=== PATIENT | male | born 1940 | race Hispanic/Latino ===

== ENCOUNTER 2018-09-14 14:14 | Inpatient (IN) | payer MEDICARE ==
--- NOTE | 2018-09-14 15:15 | ED PDOC ---
HPI: CCC, URI, Sore Throat Additional Complaint(s): Pt seen and examined at bedside with attending. Patient from [place], flight scheduled for Wednesday and family understands that will depend on his condition. 78M referred from [facility] for CXR showing "infiltrates". Pt reports has had 3 days of low grade fevers, fatigue, productive cough, and worsening shortness of breath. He denies any N/V/diarrhea, chest pain, lower extremity leg swelling. He arrived in [place] from [facility] 09/12 after a total 12hr flight (family vacation) but was having symptoms prior to the flight. He denies any calf pain or swelling. He denies diagnosis of COPD/DM/Heart failure in the past. PMH: A-fib, HTN, ?HF PSH: Brain Tumor (benign) SHx: Smoker ALL: NKDA <Jessica Calderón - Last Filed: 09/14/18 19:02> <Vince Sandhu III - Last Filed: 09/19/18 13:12> <Cynthia Logan - Last Filed: 09/20/18 05:14> Time Seen by Provider: 09/14/18 15:00 Chief Complaint (Nursing): Cough, Cold, Congestion Supervising Attending Note - Attestation: I have personally seen and examined this patient.: Yes I have fully participated in the care of the patient.: Yes I have reviewed all pertinent clinical information, including history, physical exam and plan: Yes - Notes: Notes:: seen and examined w resident agree w findings and plan <Vince Sandhu III - Last Filed: 09/19/18 13:12> Past Medical History Vital Signs: Last Vital Signs Temp 36.6 C 09/14/18 14:19 Pulse 93 H 09/14/18 14:19 Resp 22 09/14/18 14:19 BP 185/105 H 09/14/18 14:19 Pulse Ox 92 L 09/14/18 14:19 - Family History Family History: States: No Known Family Hx <Jessica Calderón - Last Filed: 09/14/18 19:02> Vital Signs: Last Vital Signs Temp 98.7 F 09/17/18 15:49 Pulse 61 09/17/18 16:14 Resp 18 09/17/18 15:49 BP 151/76 H 09/17/18 16:14 Pulse Ox 95 09/17/18 15:49 <Vince Sandhu III - Last Filed: 09/19/18 13:12> Vital Signs: Last Vital Signs Temp 98.7 F 09/17/18 15:49 Pulse 61 09/17/18 16:14 Resp 18 09/17/18 15:49 BP 151/76 H 09/17/18 16:14 Pulse Ox 95 09/17/18 15:49 <Cynthia Logan - Last Filed: 09/20/18 05:14> - Allergies Allergies/Adverse Reactions: Allergies Allergy/AdvReac Type Severity Reaction Status Date / Time No Known Allergies Allergy Verified 09/14/18 14:18 Curb-65 Severity Score - CURB-65 Severity Score Confusion: No Bun >19mg/dl (>7mmol/L): No Respiratory Rate greater than/equal to 30: No Systolic BP <90 or Diastolic BP less than/equal 60mmHg: No Age >64: Yes Curb-65 Score: 1 Percentage 30-day mortality: 2.7% <Jessica Calderón - Last Filed: 09/14/18 19:02> Review of Systems ROS Statement: Except As Marked, All Systems Reviewed And Found Negative Constitutional: Positive for: Fever Respiratory: Positive for: Cough, Shortness of Breath (at rest), SOB with Exertion <Jessica Calderón - Last Filed: 09/14/18 19:02> Physical Exam - Reviewed Vital Signs Reviewed: Yes - Physical Exam Appears: Positive for: Non-toxic Head Exam: Positive for: ATRAUMATIC Skin: Positive for: Normal Color, Warm, Dry Eye Exam: Positive for: Normal appearance, EOMI ENT: Positive for: Normal ENT Inspection Cardiovascular/Chest: Positive for: Irregularly Irregular Respiratory: Positive for: Decreased Breath Sounds (RML/RLL), Rales (LEFT base). Negative for: Normal Breath Sounds (Unable to speak in complete sentences and requiring oxygen supplemetation), Accessory Muscle Use Gastrointestinal/Abdominal: Positive for: Normal Exam, Bowel Sounds, Soft. Negative for: Tenderness Neurologic/Psych: Positive for: Alert, Oriented <Jessica Calderón - Last Filed: 09/14/18 19:02> - Laboratory Results Result Diagrams: 09/14/18 15:31 09/14/18 15:31 - ECG O2 Sat by Pulse Oximetry: 92 <Jessica Calderón - Last Filed: 09/14/18 19:02> - Laboratory Results Result Diagrams: 09/16/18 04:20 09/16/18 04:20 <Vince Sandhu III - Last Filed: 09/19/18 13:12> - Laboratory Results Result Diagrams: 09/16/18 04:20 09/16/18 04:20 <Cynthia Logan - Last Filed: 09/20/18 05:14> Medical Decision Making Medical Decision Making: Fevers and increasing SOB for 3 days with productive cough pneumonia vs. heart failure - CBC, CMP, VBG, Coags, BCx, Urine Dip - EKG, CXR Mild leukocytosis, blunting of RIGHT costophrenic with patchiness. Patient saturating 91/92% on nasal cannula (does not use at home). Spoke with family and will admit for IV antibiotics. [address] Arceo for admission, he agreed to Tele and recommended CT angio. Patient requiring oxygen which is new for him. 1750 - BNP added <Jessica Calderón - Last Filed: 09/14/18 19:02> Disposition - Patient ED Disposition Is Patient to be Admitted: Yes Discussed With : Zachary Arceo Doctor Will See Patient In The: Hospital Counseled Patient/Family Regarding: Diagnosis - Disposition Disposition Time: 17:30 - Pt Status Changed To: Hospital Disposition Of: Observation <Jessica Calderón - Last Filed: 09/14/18 19:02> <Vince Sandhu III - Last Filed: 09/19/18 13:12> <Cynthia Logan - Last Filed: 09/20/18 05:14> - Clinical Impression Clinical Impression: Pneumonia, Atrial fibrillation - Disposition Condition: FAIR Addendum Addendum: 09/20/18 05:13 Followed the patient with the resident as a sign out from Dr. Sandhu. Agree with assessment and plan and patient admission. <Cynthia Logan - Last Filed: 09/20/18 05:14>
[2018-09-14 15:37] LABS: BASO % 0.3 % (0.0-2.0); HEMOGLOBIN 13.8 g/dL (12.0-18.0); LYMPH # 0.7 K/uL (1.0-4.3); MEAN CELL VOLUME 89.4 fl (80.0-94.0); MEAN CORPUSCULAR HEMOGLOBIN 29.4 pg (27.0-31.0); MEAN CORPUSCULAR HGB CONC 32.8 g/dL (33.0-37.0); MEAN PLATELET VOLUME 9.4 fl (7.2-11.7); MONO # 1.1 K/uL (0.0-0.8); MONO % 9.8 % (0.0-10.0); NEUT # 9.4 K/uL (1.8-7.0); NEUT % 83.9 % (50.0-75.0); PLATELET COUNT 165 K/uL (130-400); RBC 4.69 Mil/uL (4.40-5.90); RED CELL DISTRIBUTION WIDTH 14.6 % (11.5-14.5); WHITE BLOOD COUNT 11.2 K/uL (4.8-10.8)
[2018-09-14 15:46] LABS: ALB/GLOB RATIO 1.1 (1.0-2.1); ALT/SGPT 27 U/L (21-72); AST/SGOT 29 U/L (17-59); BLOOD UREA NITROGEN 14 mg/dl (9-20); CALCIUM 9.3 mg/dL (8.4-10.2); GFR NON-AFRICAN AMERICAN > 60
[2018-09-14 15:49] LABS: PROTHROMBIN TIME 22.2 Seconds (9.8-13.1)
[2018-09-14 15:51] LABS: VENOUS BLOOD GAS BASE EXCESS 1.5 mmol/L (0.0-2.0); VENOUS BLOOD GAS PCO2 46 mmHg (40-60); VENOUS BLOOD GAS PO2 32 mm/Hg (30-55); VENOUS BLOOD PH 7.38 (7.32-7.43)
[2018-09-14 15:52] LABS: PARTIAL THROMBOPLASTIN TIME 41.8 Seconds (25.6-37.1)
--- NOTE | 2018-09-14 15:52 | RAD ---
Date of service: 09/14/2018 HISTORY: Cough and fever COMPARISON: No prior. TECHNIQUE: Chest PA and lateral FINDINGS: LINES AND TUBES: None. LUNG AND PLEURA: There is low lung volume on the right. The left lung is well inflated and clear. Suspect small right pleural effusion and fluid in the minor fissure. No large left pleural effusion. No pneumothorax. HEART AND MEDIASTINUM: There is severe cardiomegaly. No aortic atherosclerotic calcification present. The hilar and mediastinal contours are within normal limits. SKELETAL STRUCTURES: The bony structures are within normal limits for the patient's age. VISUALIZED UPPER ABDOMEN: Normal. OTHER FINDINGS: None. IMPRESSION: Severe cardiomegaly, suspect small right pleural effusion and fluid in the minor fissure.
[2018-09-14 17:10] LABS: BANDS 3 % (0-2); HYPOCHROMIC SLIGHT; LYMPHOCYTE 7 % (20-50); MONOCYTE 9 % (0-10); NEUTROPHIL 81 % (42-75); PLATELET ESTIMATE NORMAL (NORMAL); TOTAL CELLS COUNTED 100
[2018-09-14 17:12] LABS: TOXIC GRANULATION PRESENT
[2018-09-14] MEDS ORDERED: Azithromycin 500 MG in Sodium Chloride 0.9% 250 ML IVPB STA (17:27)
[2018-09-14] MEDS ORDERED: cefTRIAXone (Rocephin) 1 gm Inj ONE (18:02)
[2018-09-14] MEDS ORDERED: Azithromycin 500 MG IV IVPB ONE (18:03)
[2018-09-14] MEDS ORDERED: Iodixanol 320 MG/ML 100 ML BOTTLE IV ONE (18:20)
[2018-09-14] MEDS ORDERED: Sodium Chloride 0.9% 50 ML IV ONE (18:21)
[2018-09-14 21:32] LABS: B-TYPE NATRIURETIC PEPTIDE 3850 pg/ml (0-900)
[2018-09-15 05:42] LABS: HEMOGLOBIN 13.3 g/dL (12.0-18.0); MEAN CELL VOLUME 88.9 fl (80.0-94.0); MEAN CORPUSCULAR HEMOGLOBIN 29.4 pg (27.0-31.0); MEAN CORPUSCULAR HGB CONC 33.1 g/dL (33.0-37.0); RBC 4.52 Mil/uL (4.40-5.90); RED CELL DISTRIBUTION WIDTH 14.7 % (11.5-14.5)
[2018-09-15 05:51] LABS: ALB/GLOB RATIO 1.1 (1.0-2.1); ALBUMIN 3.6 g/dL (3.5-5.0); ALT/SGPT 30 U/L (21-72); AST/SGOT 25 U/L (17-59); BLOOD UREA NITROGEN 13 mg/dl (9-20); CALCIUM 8.7 mg/dL (8.4-10.2); GFR NON-AFRICAN AMERICAN > 60
--- NOTE | 2018-09-15 07:56 | CP.PCM.CON ---
History of Present Illness - History of Present Illness History of Present Illness: 78M referred from [facility] for CXR showing "infiltrates". Pt reports has had 3 days of low grade fevers, fatigue, productive cough, and worsening shortness of breath. He denies any N/V/diarrhea, chest pain, lower extremity leg swelling. He arrived in [place] from [facility] 09/12 after a total 12hr flight (family vacation) but was having symptoms prior to the flight. He denies any calf pain or swelling. He denies diagnosis of COPD/DM/Heart failure in the past. PMH: HTN Atrial Fibrillation PSH: Brain Tumor (benign) SHx: Smoker EKG: sinus rhythm with PVC's Past Patient History - Past Medical History & Family History Past Medical History?: Yes - Past Social History Smoking Status: Heavy Smoker > 10 Cigarettes Daily - CARDIAC Hx Atrial Fibrillation: Yes Hx Congestive Heart Failure: Yes Hx Hypertension: Yes - PULMONARY Hx Chronic Obstructive Pulmonary Disease (COPD): Yes - NEUROLOGICAL Hx Neurological Disorder: No - HEENT Hx HEENT Problems: No - RENAL Hx Chronic Kidney Disease: No - ENDOCRINE/METABOLIC Hx Endocrine Disorders: No - HEMATOLOGICAL/ONCOLOGICAL Hx AIDS: No Hx Blood Transfusions: Yes Hx Blood Transfusion Reaction: No Hx Human Immunodeficiency Virus (HIV): No - INTEGUMENTARY Hx Dermatological Problems: No - MUSCULOSKELETAL/RHEUMATOLOGICAL Hx Falls: Yes Hx Fractures: Yes - GASTROINTESTINAL Hx Constipation: Yes - GENITOURINARY/GYNECOLOGICAL Hx Genitourinary Disorders: No - PSYCHIATRIC Hx Psychophysiologic Disorder: No Hx Substance Use: Yes (Marijuana) - SURGICAL HISTORY Hx Surgeries: Yes Hx Appendectomy: Yes Other/Comment: brain Sx for brain tumor ( benign ) - ANESTHESIA Hx Anesthesia: Yes Hx Anesthesia Reactions: No Meds Allergies/Adverse Reactions: Allergies Allergy/AdvReac Type Severity Reaction Status Date / Time No Known Allergies Allergy Verified 09/14/18 14:18 - Medications Medications: Current Medications Atorvastatin Calcium (Lipitor) 40 mg PO HS [facility] Last Admin: 09/14/18 23:06 Dose: 40 mg Diltiazem HCl (Cardizem Cd) 180 mg PO DAILY [facility] Levothyroxine Sodium (Synthroid) 25 mcg PO DAILY [facility] Lisinopril (Zestril) 40 mg PO DAILY [facility] Metoprolol Tartrate (Lopressor) 50 mg PO BID [facility] Last Admin: 11/21/18 23:10 Dose: 50 mg Pramipexole Dihydrochloride (Mirapex) 0.75 mg PO HS [facility] Last Admin: 09/14/18 23:06 Dose: 0.75 mg Warfarin Sodium (Coumadin) 5 mg PO DAILY [facility]; Protocol Results - Vital Signs Recent Vital Signs: Last Vital Signs Temp 97.6 F 09/15/18 07:54 Pulse 93 H 09/15/18 07:54 Resp 20 09/15/18 07:54 BP 175/88 H 09/15/18 07:54 Pulse Ox 96 09/15/18 07:54 - Labs Result Diagrams: 09/15/18 04:25 09/15/18 04:25 Labs: Laboratory Results - last 24 hr 09/14/18 09/14/18 09/14/18 10:07 10:07 15:31 WBC 11.2 H RBC 4.69 Hgb 13.8 Hct 41.9 MCV 89.4 MCH 29.4 MCHC 32.8 L RDW 14.6 H Plt Count 165 MPV 9.4 Neut % (Auto) 83.9 H Lymph % (Auto) 6.0 L Charles % (Auto) 9.8 Eos % (Auto) 0.0 Baso % (Auto) 0.3 Neut # (Auto) 9.4 H Lymph # (Auto) 0.7 L Charles # (Auto) 1.1 H Eos # (Auto) 0.0 Baso # (Auto) 0.0 Neutrophils % (Manual) 81 H Band Neutrophils % 3 H Lymphocytes % (Manual) 7 L Monocytes % (Manual) 9 Toxic Granulation Present Platelet Estimate Normal Hypochromasia (manual) Slight PT INR APTT pO2 VBG pH VBG pCO2 VBG HCO3 VBG Total CO2 VBG O2 Sat (Calc) VBG Base Excess VBG Potassium Glucose Lactate FiO2 Sodium Potassium Chloride Carbon Dioxide Anion Gap BUN Creatinine Est GFR ( Amer) Est GFR (Non-Af Amer) Random Glucose Calcium Magnesium Total Bilirubin AST ALT Alkaline Phosphatase Troponin I 0.0460 NT-Pro-B Natriuret Pep Total Protein Albumin Globulin Albumin/Globulin Ratio TSH 3rd Generation Venous Blood Potassium Influenza Typ A,B (EIA) Negative for flu a/b 09/14/18 09/14/18 09/14/18 15:31 15:31 15:40 WBC RBC Hgb Hct MCV MCH MCHC RDW Plt Count MPV Neut % (Auto) Lymph % (Auto) Charles % (Auto) Eos % (Auto) Baso % (Auto) Neut # (Auto) Lymph # (Auto) Charles # (Auto) Eos # (Auto) Baso # (Auto) Neutrophils % (Manual) Band Neutrophils % Lymphocytes % (Manual) Monocytes % (Manual) Toxic Granulation Platelet Estimate Hypochromasia (manual) PT 22.2 H INR 2.0 APTT 41.8 H pO2 32 VBG pH 7.38 VBG pCO2 46 VBG HCO3 25.1 VBG Total CO2 28.6 H VBG O2 Sat (Calc) 62.7 VBG Base Excess 1.5 VBG Potassium 3.5 L Glucose 126 H Lactate 1.8 FiO2 21.0 Sodium 140 136.0 Potassium 3.6 Chloride 104 101.0 Carbon Dioxide 27 Anion Gap 13 BUN 14 Creatinine 0.7 L Est GFR ( Amer) > 60 Est GFR (Non-Af Amer) > 60 Random Glucose 127 H Calcium 9.3 Magnesium 1.9 Total Bilirubin 0.8 AST 29 ALT 27 Alkaline Phosphatase 108 Troponin I NT-Pro-B Natriuret Pep 3850 H Total Protein 7.6 Albumin 4.0 Globulin 3.7 Albumin/Globulin Ratio 1.1 TSH 3rd Generation Venous Blood Potassium 3.5 L Influenza Typ A,B (EIA) 09/15/18 09/15/18 04:25 04:25 WBC 11.0 H RBC 4.52 Hgb 13.3 Hct 40.2 MCV 88.9 MCH 29.4 MCHC 33.1 RDW 14.7 H Plt Count 153 MPV Neut % (Auto) Lymph % (Auto) Charles % (Auto) Eos % (Auto) Baso % (Auto) Neut # (Auto) Lymph # (Auto) Charles # (Auto) Eos # (Auto) Baso # (Auto) Neutrophils % (Manual) Band Neutrophils % Lymphocytes % (Manual) Monocytes % (Manual) Toxic Granulation Platelet Estimate Hypochromasia (manual) PT INR APTT pO2 VBG pH VBG pCO2 VBG HCO3 VBG Total CO2 VBG O2 Sat (Calc) VBG Base Excess VBG Potassium Glucose Lactate FiO2 Sodium 140 Potassium 3.4 L Chloride 104 Carbon Dioxide 26 Anion Gap 13 BUN 13 Creatinine 0.7 L Est GFR ( Amer) > 60 Est GFR (Non-Af Amer) > 60 Random Glucose 103 Calcium 8.7 Magnesium Total Bilirubin 0.7 AST 25 ALT 30 Alkaline Phosphatase 97 Troponin I 0.0420 NT-Pro-B Natriuret Pep Total Protein 7.0 Albumin 3.6 Globulin 3.4 Albumin/Globulin Ratio 1.1 TSH 3rd Generation < 0.02 L Venous Blood Potassium Influenza Typ A,B (EIA) Assessment & Plan (1) Atrial fibrillation Status: Acute (2) Pneumonia Status: Acute (3) Acute on chronic left systolic heart failure Assessment and Plan: will start on lasix Echo ordered Status: Acute
--- NOTE | 2018-09-15 08:33 | CT ---
Date of service: 09/14/2018 PROCEDURE: CT Chest with contrast (Pulmonary Angiogram) HISTORY: fever, dyspnea COMPARISON: None available. TECHNIQUE: Axial computed tomography images were obtained of the chest in the pulmonary arterial phase of enhancement. Coronal and sagittal reformatted images were created and reviewed. Intravenous contrast dose: 100 cc Visipaque 320 Mean Hounsfield value in the main pulmonary artery: 272.36 Radiation dose: Total exam DLP = 390.62 mGy-cm. This CT exam was performed using one or more of the following dose reduction techniques: Automated exposure control, adjustment of the mA and/or kV according to patient size, and/or use of iterative reconstruction technique. FINDINGS: PULMONARY ARTERIES: Unremarkable. No pulmonary embolism. AORTA: No acute findings. No thoracic aortic aneurysm. No atherosclerotic calcification or mural plaque present. LUNGS: Unremarkable. No nodule, mass or pulmonary consolidation. PLEURAL SPACES: Trace bilateral pleural effusions. Calcifications within the pleura limited to the right pleural surface. HEART: . Cardiomegaly. No significant pericardial effusion. LYMPH NODES: Mediastinal lymphadenopathy largest node measures 1.5 x 2 cm. BONES, CHEST WALL: Unremarkable. No fracture or destructive lesion OTHER FINDINGS: Unremarkable. IMPRESSION: Unremarkable CT pulmonary angiogram. No pulmonary embolus. Additional benign and/or incidental findings described above. Concordant results (preliminary interpretation) provided by [employer]. Procedure Completed: 18:36. Preliminary Report: Dictated and Authenticated: 20:48. Final Interpretation: 08:28. September 15, 2018
[2018-09-15] MEDS ORDERED: Levothyroxine 25 MCG TAB PO SCH (09:00)
[2018-09-15] MEDS: diltiaZEM 180 mg/24 Hours CD Cap PO SCH (09:37)
--- NOTE | 2018-09-15 09:44 | CARD ---
APPROVED REPORT Date of service: 09/14/2018 EKG Measurement Heart [id number] <Conclusion> Sinus rhythm with frequent premature ventricular complexes Left axis deviation Right bundle branch block Inferior infarct, age undetermined Abnormal ECG
[2018-09-15] MEDS ORDERED: Potassium Chloride 20 mEq ER Tab PO ONE (11:53)
[2018-09-16 06:33] LABS: B-TYPE NATRIURETIC PEPTIDE 1640 pg/ml (0-900)
[2018-09-16 06:38] LABS: HEMOGLOBIN 13.5 g/dL (12.0-18.0); MEAN CELL VOLUME 90.6 fl (80.0-94.0); MEAN CORPUSCULAR HEMOGLOBIN 29.9 pg (27.0-31.0); RBC 4.51 Mil/uL (4.40-5.90); RED CELL DISTRIBUTION WIDTH 14.9 % (11.5-14.5); WHITE BLOOD COUNT 9.3 K/uL (4.8-10.8)
[2018-09-16 06:45] LABS: ALBUMIN 3.4 g/dL (3.5-5.0); ALT/SGPT 24 U/L (21-72); AST/SGOT 29 U/L (17-59); BLOOD UREA NITROGEN 21 mg/dl (9-20); CALCIUM 8.8 mg/dL (8.4-10.2); GFR NON-AFRICAN AMERICAN > 60
[2018-09-16] MEDS: diltiaZEM 180 mg/24 Hours CD Cap PO SCH (09:18)
[2018-09-16 09:50] LABS: INR 1.9; PROTHROMBIN TIME 21.9 Seconds (9.8-13.1)
[2018-09-16] MEDS ORDERED: Potassium Chloride 20 mEq ER Tab PO ONE (10:57)
--- NOTE | 2018-09-16 12:26 | CP.PCM.PN ---
Subjective - Date & Time of Evaluation Date of Evaluation: 09/16/18 Time of Evaluation: 10:50 - Subjective Subjective: the patient was found lying in bed virtually flat and can carry on a conversation. He reports having diuresed profusely after intravenous Diuretic was given. Telemetry shows atrial flutter with a moderate heart rate. His blood pressure is 146/80 mmHg. His jugular venous pressure was not elevated and there was no edema over his lower extremities. There were few rales audible at left base. Echocardiogram shows a preserved left ventricular systolic function with no significant valvular abnormality. Chest x-ray was noted. Lab data shows significantly elevated proBNP. The impression at this time his congestive cardiac failure which appears to have resolved with diuresis. Potassium replacement has been ordered. Warfarin has been ordered. I started him on oral diuretics. Objective - Vital Signs/Intake and Output Vital Signs (last 24 hours): Temp Pulse Resp BP Pulse Ox 98.1 F 69 18 142/81 96 09/16/18 12:02 09/16/18 12:02 09/16/18 12:02 09/16/18 12:02 09/16/18 12:02 Intake and Output: 09/16/18 09/16/18 06:59 18:59 Intake Total 800 Output Total 1500 Balance -700 - Medications Medications: Current Medications Atorvastatin Calcium (Lipitor) 40 mg PO HS [facility] Last Admin: 09/15/18 21:32 Dose: 40 mg Diltiazem HCl (Cardizem Cd) 180 mg PO DAILY [facility] Last Admin: 09/16/18 09:18 Dose: 180 mg Furosemide (Lasix) 40 mg IVP BID [facility] Last Admin: 09/16/18 09:17 Dose: 40 mg Lisinopril (Zestril) 40 mg PO DAILY [facility] Last Admin: 09/16/18 09:19 Dose: 40 mg Metoprolol Tartrate (Lopressor) 50 mg PO BID [facility] Last Admin: 09/16/18 10:51 Dose: 50 mg Pramipexole Dihydrochloride (Mirapex) 0.75 mg PO HS [facility] Last Admin: 09/15/18 21:32 Dose: 0.75 mg Warfarin Sodium (Coumadin) 5 mg PO DAILY [facility]; Protocol Last Admin: 09/15/18 17:31 Dose: 5 mg - Labs Labs: 09/16/18 04:20 09/16/18 04:20 PT 21.9 Seconds (9.8-13.1) H 09/16/18 09:34 INR 1.9 09/16/18 09:34 APTT 41.8 Seconds (25.6-37.1) H 09/14/18 15:31
--- NOTE | 2018-09-16 18:39 | CARD ---
APPROVED REPORT Date of service: 09/16/2018 EKG Measurement Heart [id number] <Conclusion> Atrial flutter with variable AV block with premature atrial complexes Right bundle branch block Left anterior fascicular block Bifascicular block Abnormal ECG
--- NOTE | 2018-09-16 19:11 | CARD ---
APPROVED REPORT Date of service: 09/16/2018 EXAM: Two-dimensional and M-mode echocardiogram with Doppler and color Doppler. Other Information Quality : GoodRhythm : Atrial Fibrillation INDICATION Atrial Fibrillation 2D DIMENSIONS IVSd1.48 (0.7-1.1cm)LVDd4.90 (3.9-5.9cm) LVOT Diameter2.76 (1.8-2.4cm)PWd1.16 (0.7-1.1cm) IVSs1.36 (0.8-1.2cm)LVDs3.81 (2.5-4.0cm) FS (%) 22.2 %PWs1.11 (0.8-1.2cm) M-Mode DIMENSIONS Left Atrium (MM)5.69 (2.5-4.0cm)IVSd1.19 (0.7-1.1cm) Aortic Root3.35 (2.2-3.7cm)LVDd4.89 (4.0-5.6cm) Aortic Cusp Exc.2.10 (1.5-2.0cm)PWd1.22 (0.7-1.1cm) IVSs1.75 cmFS (%) 44 % LVDs2.76 (2.0-3.8cm)PWs1.92 cm Aortic Valve AoV Peak Qfqhkvjq817.0cm/sAoV VTI22.8cmAO Peak GR.10mmHg LVOT Peak Iyxrjlbu34.5cm/sLVOT VTI16.46cmAO Mean GR.5mmHg EMMANUEL (VMAX)1.72dz2FGK (VTI)1.98cm2 Mitral Valve MV E Yyildtyd495.4cm/sMV DECEL [id number] A Nnkxfcif69.4cm/s MV ZTE83ckR/A ratio1.8MVA (PHT)4.47cm2 TDI E/Lateral E'0.0E/Medial E'0.0 LEFT VENTRICLE The left ventricle is normal size. There is borderline to mild concentric left ventricular hypertrophy. The left ventricular systolic function is normal. The estimated ejection fraction is 55-60% No regional wall motion abnormalities noted.. The left ventricular diastolic function is not assessed due to underlying atrial fibrillation. No left ventricle thrombus noted on this study. There is no ventricular septal defect visualized. There is no left ventricular aneurysm. There is no mass noted in the left ventricle. RIGHT VENTRICLE The right ventricle is normal size. There is normal right ventricular wall thickness. The right ventricular systolic function is normal. ATRIA The left atrium is moderately dilated. The right atrium size is normal. The interatrial septum is intact with no evidence for an atrial septal defect. AORTIC VALVE The aortic valve is normal in structure. No aortic regurgitation is present. There is no aortic valvular stenosis. There is no aortic valvular vegetation. MITRAL VALVE The mitral valve is normal in structure. There is no evidence of mitral valve prolapse. There is no mitral valve stenosis. There is no mitral valve regurgitation noted. TRICUSPID VALVE The tricuspid valve is normal in structure. There is trivial tricuspid valve regurgitation noted. There is no tricuspid valve prolapse or vegetation. There is no tricuspid valve stenosis. PULMONIC VALVE The pulmonary valve is normal in structure. There is no pulmonic valvular regurgitation. There is no pulmonic valvular stenosis. GREAT VESSELS The aortic root is normal in size. The ascending aorta is normal in size. The pulmonary artery is normal. The IVC is normal in size and collapses >50% with inspiration. PERICARDIAL EFFUSION There is no pericardial effusion. There is no pleural effusion. <Conclusion> There is borderline to mild concentric left ventricular hypertrophy. The estimated ejection fraction is 55-60% The left ventricular diastolic function is not assessed due to underlying atrial fibrillation. The left atrium is moderately dilated. There is trivial tricuspid valve regurgitation noted.
[2018-09-16] MEDS: guaiFENesin DM 200 mg-20 mg/10 ml UD PO SCH (21:46)
[2018-09-17] MEDS: diltiaZEM 180 mg/24 Hours CD Cap PO SCH (08:32)
[2018-09-17] MEDS: guaiFENesin DM 200 mg-20 mg/10 ml UD PO SCH ×3 (08:33→16:17)
[2018-09-17 10:06] LABS: INR 2.2; PROTHROMBIN TIME 25.4 Seconds (9.8-13.1)
--- NOTE | 2018-09-17 12:07 | CP.PCM.PN ---
Subjective - Date & Time of Evaluation Date of Evaluation: 09/17/18 Time of Evaluation: 11:00 - Subjective Subjective: The patient was found comfortably resting in bed and could carry on a conversation while virtually flat. His respiratory rate was 14-16 breaths per minute. His heart rate was 88 bpm with atrial flutter. His blood pressure was 140/70 mmHg. His jugular venous pressure was not elevated and there was no pitting edema over his lower extremities. There were coarse crepitations on both sides of his lungs. [place] was not palpable and the first and second heart sounds were distant were normal. The impression at this time his congestive cardiac failure with preserved left ventricular systolic function. The patient is hemodynamically stable and his INR is therapeutic. The patient appears stable to undertake traveled to return to his home in [place]. Objective - Vital Signs/Intake and Output Vital Signs (last 24 hours): Temp Pulse Resp BP Pulse Ox 97.4 F L 72 20 154/80 H 94 L 09/17/18 12:00 09/17/18 12:00 09/17/18 12:00 09/17/18 12:00 09/17/18 12:00 - Medications Medications: Current Medications Atorvastatin Calcium (Lipitor) 40 mg PO HS [facility] Last Admin: 09/16/18 21:47 Dose: 40 mg Diltiazem HCl (Cardizem Cd) 180 mg PO DAILY [facility] Last Admin: 09/17/18 08:32 Dose: 180 mg Furosemide (Lasix) 40 mg PO DAILY [facility] Last Admin: 09/17/18 08:32 Dose: 40 mg Guaifenesin/Dextromethorphan (Robitussin Dm) 10 ml PO QID [facility] Last Admin: 09/17/18 08:33 Dose: 10 ml Lisinopril (Zestril) 40 mg PO DAILY [facility] Last Admin: 09/17/18 08:33 Dose: 40 mg Metoprolol Tartrate (Lopressor) 50 mg PO BID [facility] Last Admin: 09/17/18 08:33 Dose: Not Given Pramipexole Dihydrochloride (Mirapex) 0.75 mg PO HS [facility] Last Admin: 09/16/18 21:47 Dose: 0.75 mg - Labs Labs: 09/16/18 04:20 09/16/18 04:20 PT 25.4 Seconds (9.8-13.1) H 09/17/18 09:15 INR 2.2 09/17/18 09:15 APTT 41.8 Seconds (25.6-37.1) H 09/14/18 15:31
[2018-09-17 15:50] VITALS: BP 151/76; RESP 18; TEMP 98.7; O2SAT 95
[2018-09-17 16:16] VITALS: PULSE 61
--- NOTE | 2018-09-21 19:50 | CP.PCM.HP ---
History of Present Illness - History of Present Illness History of Present Illness: 78 year old male admitted due to dyspnea, atrial fibrillation, pneumonia. Patient was referred from [facility] for CXR showing "infiltrates". Reported 3 days of low grade fevers, fatigue, productive cough, and worsening shortness of breath. Denies chest pain, lower extremity leg swelling, calf pain. Denies diagnosis of COPD/DM/Heart failure in the past. Of note, He arrived in [place] from [facility] 09/12 after a total 12hr flight (family vacation) but was having symptoms prior to the flight. PMH: A-fib, HTN, ?HF PSH: Brain Tumor (benign) SHx: Smoker ALL: NKDA Present on Admission - Present on Admission Any Indicators Present on Admission: No Review of Systems - Review of Systems All systems: reviewed and no additional remarkable complaints except (mentioned in HPI) Past Patient History - Past Medical History & Family History Past Medical History?: Yes - Past Social History Smoking Status: Heavy Smoker > 10 Cigarettes Daily - CARDIAC Hx Atrial Fibrillation: Yes Hx Congestive Heart Failure: Yes Hx Hypertension: Yes - PULMONARY Hx Chronic Obstructive Pulmonary Disease (COPD): Yes - NEUROLOGICAL Hx Neurological Disorder: No - HEENT Hx HEENT Problems: No - RENAL Hx Chronic Kidney Disease: No - ENDOCRINE/METABOLIC Hx Endocrine Disorders: No - HEMATOLOGICAL/ONCOLOGICAL Hx AIDS: No Hx Blood Transfusions: Yes Hx Blood Transfusion Reaction: No Hx Human Immunodeficiency Virus (HIV): No - INTEGUMENTARY Hx Dermatological Problems: No - MUSCULOSKELETAL/RHEUMATOLOGICAL Hx Falls: Yes Hx Fractures: Yes - GASTROINTESTINAL Hx Constipation: Yes - GENITOURINARY/GYNECOLOGICAL Hx Genitourinary Disorders: No - PSYCHIATRIC Hx Psychophysiologic Disorder: No Hx Substance Use: Yes (Marijuana) - SURGICAL HISTORY Hx Surgeries: Yes Hx Appendectomy: Yes Other/Comment: brain Sx for brain tumor ( benign ) - ANESTHESIA Hx Anesthesia: Yes Hx Anesthesia Reactions: No Meds Home Medications: Home Medication List Medication Instructions Recorded Confirmed Type Furosemide [Lasix] 40 mg PO DAILY tab 09/17/18 Rx Potassium Chloride [K-Dur 20 mEq 20 meq PO DAILY #30 tab 09/17/18 Rx ER Tab] Allergies/Adverse Reactions: Allergies Allergy/AdvReac Type Severity Reaction Status Date / Time No Known Allergies Allergy Verified 09/14/18 14:18 Physical Exam - Constitutional Appears: Non-toxic, No Acute Distress - Head Exam Head Exam: NORMAL INSPECTION - Eye Exam Eye Exam: Normal appearance - Neck Exam Neck exam: Positive for: Normal Inspection - Respiratory Exam Respiratory Exam: Decreased Breath Sounds (bilateral bases) - Cardiovascular Exam Cardiovascular Exam: +S1, +S2 - GI/Abdominal Exam GI & Abdominal Exam: Soft - Extremities Exam Extremities exam: Positive for: normal inspection - Back Exam Back exam: NORMAL INSPECTION - Neurological Exam Neurological exam: Alert, Oriented x3 - Psychiatric Exam Psychiatric exam: Normal Affect, Normal Mood - Skin Skin Exam: Normal Color, Warm Results - Vital Signs Recent Vital Signs: Last Vital Signs Temp 98.7 F 09/17/18 15:49 Pulse 61 09/17/18 16:14 Resp 18 09/17/18 15:49 BP 151/76 H 09/17/18 16:14 Pulse Ox 95 09/17/18 15:49 - Labs Result Diagrams: 09/16/18 04:20 09/16/18 04:20 Assessment & Plan - Assessment and Plan (Free Text) Assessment: 78 year old male w/ PMHx of afib, htn admitted due to dyspnea, atrial fibrillation, pneumonia plan cardiology consulted cta reviewed echo ordered iv lasix monitor I&os monitor O2 sat rest of plan as ordered
--- NOTE | 2018-09-21 20:10 | CP.PCM.PN ---
Subjective - Date & Time of Evaluation Date of Evaluation: 09/16/18 Time of Evaluation: 11:00 - Subjective Subjective: patient seen and examined at bedside. no acute events overnight feels better cardiology following denies cp sob improved. Objective - Vital Signs/Intake and Output Vital Signs (last 24 hours): Temp Pulse Resp BP Pulse Ox 98.7 F 61 18 151/76 H 95 09/17/18 15:49 09/17/18 16:14 09/17/18 15:49 09/17/18 16:14 09/17/18 15:49 - Labs Labs: 09/16/18 04:20 09/16/18 04:20 PT 25.4 Seconds (9.8-13.1) H 09/17/18 09:15 INR 2.2 09/17/18 09:15 APTT 41.8 Seconds (25.6-37.1) H 09/14/18 15:31 - Constitutional Appears: Non-toxic, No Acute Distress - Head Exam Head Exam: NORMAL INSPECTION - Eye Exam Eye Exam: Normal appearance - Respiratory Exam Respiratory Exam: NORMAL BREATHING PATTERN - Cardiovascular Exam Cardiovascular Exam: +S1, +S2 - Extremities Exam Extremities Exam: Normal Inspection - Neurological Exam Neurological Exam: Alert, Awake, Oriented x3 - Psychiatric Exam Psychiatric exam: Normal Affect, Normal Mood - Skin Skin Exam: Normal Color, Warm Assessment and Plan - Assessment and Plan (Free Text) Assessment: 78 year old male w/ PMHx of afib, htn admitted due to dyspnea, atrial fibrillation, pneumonia plan cardiology following, appreciate recommendations echo pending result c/w diuretics monitor O2 sat rest of plan as ordered
--- NOTE | 2018-09-21 20:15 | CP.PCM.DIS ---
Provider - Provider Date of Admission: 09/16/18 11:53 Attending physician: Zachary Arceo MD Time Spent in preparation of Discharge (in minutes): 30 Diagnosis - Discharge Diagnosis (1) Heart failure with preserved ejection fraction Status: Acute Hospital Course - Lab Results Lab Results: Micro Results 09/14/18 15:26 Blood-Venous Blood Culture - Final NO GROWTH AFTER 5 DAYS 09/14/18 15:26 Blood-Venous Gram Stain - Final TEST NOT PERFORMED Most Recent Lab Values WBC 9.3 K/uL (4.8-10.8) 09/16/18 04:20 RBC 4.51 Mil/uL (4.40-5.90) 09/16/18 04:20 Hgb 13.5 g/dL (12.0-18.0) 09/16/18 04:20 Hct 40.9 % (35.0-51.0) 09/16/18 04:20 MCV 90.6 fl (80.0-94.0) 09/16/18 04:20 MCH 29.9 pg (27.0-31.0) 09/16/18 04:20 MCHC 33.0 g/dL (33.0-37.0) 09/16/18 04:20 RDW 14.9 % (11.5-14.5) H 09/16/18 04:20 Plt Count 170 K/uL (130-400) 09/16/18 04:20 MPV 9.4 fl (7.2-11.7) 09/14/18 15:31 Neut % (Auto) 83.9 % (50.0-75.0) H 09/14/18 15:31 Lymph % (Auto) 6.0 % (20.0-40.0) L 09/14/18 15:31 Lassen % (Auto) 9.8 % (0.0-10.0) 09/14/18 15:31 Eos % (Auto) 0.0 % (0.0-4.0) 09/14/18 15:31 Baso % (Auto) 0.3 % (0.0-2.0) 09/14/18 15:31 Neut # (Auto) 9.4 K/uL (1.8-7.0) H 09/14/18 15:31 Lymph # (Auto) 0.7 K/uL (1.0-4.3) L 09/14/18 15:31 Lassen # (Auto) 1.1 K/uL (0.0-0.8) H 09/14/18 15:31 Eos # (Auto) 0.0 K/uL (0.0-0.7) 09/14/18 15:31 Baso # (Auto) 0.0 K/uL (0.0-0.2) 09/14/18 15:31 Neutrophils % (Manual) 81 % (42-75) H 09/14/18 15:31 Band Neutrophils % 3 % (0-2) H 09/14/18 15:31 Lymphocytes % (Manual) 7 % (20-50) L 09/14/18 15:31 Monocytes % (Manual) 9 % (0-10) 09/14/18 15:31 Toxic Granulation Present 09/14/18 15:31 Platelet Estimate Normal (NORMAL) 09/14/18 15:31 Hypochromasia (manual) Slight 09/14/18 15:31 PT 25.4 Seconds (9.8-13.1) H 09/17/18 09:15 INR 2.2 09/17/18 09:15 APTT 41.8 Seconds (25.6-37.1) H 09/14/18 15:31 pO2 32 mm/Hg (30-55) 09/14/18 15:40 VBG pH 7.38 (7.32-7.43) 09/14/18 15:40 VBG pCO2 46 mmHg (40-60) 09/14/18 15:40 VBG HCO3 25.1 mmol/L 09/14/18 15:40 VBG Total CO2 28.6 mmol/L (22-28) H 09/14/18 15:40 VBG O2 Sat (Calc) 62.7 % (40-65) 09/14/18 15:40 VBG Base Excess 1.5 mmol/L (0.0-2.0) 09/14/18 15:40 VBG Potassium 3.5 mmol/L (3.6-5.2) L 09/14/18 15:40 Sodium 136.0 mmol/L (132-148) 09/14/18 15:40 Chloride 101.0 mmol/L (98-107) 09/14/18 15:40 Glucose 126 mg/dL (75-110) H 09/14/18 15:40 Lactate 1.8 mmol/L (0.7-2.1) 09/14/18 15:40 FiO2 21.0 % 09/14/18 15:40 Sodium 141 mmol/l (132-148) 09/16/18 04:20 Potassium 3.5 MMOL/L (3.6-5.0) L 09/16/18 04:20 Chloride 102 mmol/L (98-107) 09/16/18 04:20 Carbon Dioxide 32 mmol/L (22-30) H 09/16/18 04:20 Anion Gap 11 (10-20) 09/16/18 04:20 BUN 21 mg/dl (9-20) H 09/16/18 04:20 Creatinine 0.9 mg/dl (0.8-1.5) 09/16/18 04:20 Est GFR ( Amer) > 60 09/16/18 04:20 Est GFR (Non-Af Amer) > 60 09/16/18 04:20 Random Glucose 107 mg/dL (75-110) 09/16/18 04:20 Hemoglobin A1c 5.9 % (4.2-6.5) 09/15/18 04:25 Calcium 8.8 mg/dL (8.4-10.2) 09/16/18 04:20 Magnesium 1.9 MG/DL (1.6-2.3) 09/14/18 15:31 Total Bilirubin 0.8 mg/dl (0.2-1.3) 09/16/18 04:20 AST 29 U/L (17-59) 09/16/18 04:20 ALT 24 U/L (21-72) 09/16/18 04:20 Alkaline Phosphatase 99 U/L (38-126) 09/16/18 04:20 Troponin I 0.0530 ng/mL (0.00-0.120) 09/15/18 13:27 NT-Pro-B Natriuret Pep 1640 pg/ml (0-900) H 09/16/18 04:20 Total Protein 7.0 G/DL (6.3-8.2) 09/16/18 04:20 Albumin 3.4 g/dL (3.5-5.0) L 09/16/18 04:20 Globulin 3.6 gm/dL (2.2-3.9) 09/16/18 04:20 Albumin/Globulin Ratio 1.0 (1.0-2.1) 09/16/18 04:20 Procalcitonin 0.17 NG/ML (0.19-0.49) L 09/14/18 10:07 TSH 3rd Generation < 0.02 mIU/ML (0.46-4.68) L 09/15/18 04:25 Venous Blood Potassium 3.5 mmol/L (3.6-5.2) L 09/14/18 15:40 Influenza Typ A,B (EIA) Negative for flu a/b (NEGATIVE) 09/14/18 10:07 - Hospital Course Hospital Course: 78 year old male w/ PMHx of afib, htn admitted due to dyspnea, atrial fibrillation noted to have congestive heart failure with preserved ef. treated with diuretics and O2 supplementation cardiology consulted patient was cleared for discharge in stable condition and for travel to [place] Discharge Exam - Head Exam Head Exam: NORMAL INSPECTION - Eye Exam Eye Exam: Normal appearance - Neck Exam Neck exam: Normal Inspection - Respiratory Exam Respiratory Exam: UNREMARKABLE - Cardiovascular Exam Cardiovascular Exam: +S1, +S2 - GI/Abdominal Exam GI & Abdominal Exam: Unremarkable - Extremities Exam Extremities exam: normal inspection - Neurological Exam Neurological exam: Alert, Oriented x3 - Psychiatric Exam Psychiatric exam: Normal Affect, Normal Mood - Skin Skin Exam: Normal Color, Warm Discharge Plan - Discharge Medications Prescriptions: Potassium Chloride [K-Dur 20 mEq ER Tab] 20 meq PO DAILY #30 tab - Follow Up Plan Condition: STABLE Disposition: HOME/ ROUTINE Instructions: Heart Failure, Adult, Atrial Fibrillation (DC), Pneumonia, Adult (DC) Referrals: Sharan Contreras MD [Staff Provider] - Zachary Arceo MD [Medical Doctor] -
--- NOTE | 2018-09-25 23:56 | PQF ---
PROVIDER RESPONSE TEXT: Treated empirically for pneumonia, however unlikely due to CT scan findings and clinical status. REVIEWER QUERY TEXT: Condition Necessitating Admission Please clarify the medical conditions and the associated clinical risk factors necessitating admissio n. Please clarify if Pneumonia is ruled in or ruled out. The patient's Clinical Indicators include: CXR: Severe cardiomegaly, suspect small right pleural effusion and fluid in the minor fissure. CTA: LUNGS: Unremarkable. No nodule, mass or pulmonary consolidation. Unremarkable CT pulmonary ang iogram. No pulmonary embolus. Rx: IVAB Query created by: Keshia Yates on 09/22/2018 11:07 AM Electronically signed by: Zachary Arceo 09/25/2018 11:53 PM
== END 2018-09-17 17:00 | disposition home or self-care (01) | DRG 292 ==
LOC: H.ER 14:14 → H.ERHOLD 19:03 → H.TEL 22:31 → OBSVTOIN 09-16 11:53
PROVIDERS: ADMIT Family Medicine; ATTEND Family Medicine
DX: I11.0 Hypertensive heart disease with heart failure (principal); I48.92 Unspecified atrial flutter; I50.33 Acute on chronic diastolic (congestive) heart failure; I48.91 Unspecified atrial fibrillation; F17.200 Nicotine dependence, unspecified, uncomplicated; I49.3 Ventricular premature depolarization; J44.9 Chronic obstructive pulmonary disease, unspecified; Z90.49 Acquired absence of other specified parts of digestive tract; Z86.011 Personal history of benign neoplasm of the brain; F12.90 Cannabis use, unspecified, uncomplicated; K59.00 Constipation, unspecified